=== PATIENT | male | born 1975 | race American Indian/Alaskan Native ===

== ENCOUNTER 2016-11-07 11:00 | Outpatient (CLI) | payer MEDICAID ==
--- NOTE | 2016-11-07 13:34 | XRay Report ---
CHEST 2 VIEWS INDICATION: Sarcoidosis. COMPARISON: 02/27/2016 FINDINGS: PA and lateral chest radiographs again demonstrate normal cardiomediastinal silhouette. No pleural effusions or CHF. Overall less prominent lung markings, though mild bibasilar infiltrates again seen. Stable bones, including mild thoracic dextroscoliosis. CONCLUSION: Chronic interstitial infiltrates again noted, overall slight radiographically improved since February 2016, as described. Please correlate. Thank you for the opportunity to participate in this patient's care.
--- NOTE | 2016-11-07 15:01 | Cat Scan Report ---
CT CHEST WITHOUT CONTRAST INDICATION: Sarcoidosis. COMPARISON: 02/27/2016. FINDINGS: Noncontrast chest CT demonstrates stable top normal heart size. Dense left coronary calcifications again noted. No effusions. Patent central airway. Assessment of the great vessels and for assessing lymphadenopathy limited due to lack of IV contrast. Hilar/mediastinal lymphadenopathy noted previously may again be present, though possibly overall smaller as an index left suprahilar lymphoid soft tissue measurement now approximately 1.8 x 0.9 cm, axial image 57, series 2, previously 2.4 x 1.7 cm. Few small right lower neck muscular calcifications again partially imaged. Normal thyroid. Mild emphysematous changes/peripheral bullae towards the lung apices again noted. Breathing/motion artifact degrades evaluation of the lung bases. However, mild chronic infiltrates in the mid to lower lung zones again noted, though overall appear improved. Nonspecific distal esophageal wall thickening, not excluded for gastroesophageal reflux and/or hiatal hernia, amongst others. Nonobstructing bilateral renal calculi inferiorly again incompletely imaged, measuring approximately 1.3 cm on the right and 0.9 cm on the left, axial image 138, series 2. Mild degenerative spurring at few thoracic and lower cervical levels. Upper lumbar levorotoscoliosis may also be incompletely imaged. CONCLUSION: 1. Exam limited due to lack of IV contrast in this patient with known sarcoid lung and lymph node involvement, though overall appears mildly improved since February 2016. 2. Few other incidental findings, including bilateral nephrolithiasis and distal esophageal thickening, amongst others, as above. Thank you for the opportunity to participate in this patient's care.
== END 2016-11-07 11:01 | disposition home or self-care (01) ==
LOC: CT 11:00
PROVIDERS: ATTEND Internal Medicine
DX: D86.9 Sarcoidosis, unspecified (principal); R91.8 Other nonspecific abnormal finding of lung field; I25.10 Atherosclerotic heart disease of native coronary artery without angina pectoris; M61.9 Calcification and ossification of muscle, unspecified; N20.0 Calculus of kidney; M41.86 Other forms of scoliosis, lumbar region
CPT/HCPCS: 71020; 71250

== ENCOUNTER 2017-02-28 09:13 | Emergency (ER) | payer MEDICAID ==
[2017-02-28 10:48] VITALS: BP 120/87
--- NOTE | 2017-02-28 15:31 | XRay Report ---
PA and lateral chest: SOB. Routine views are compared to prior exams in October 2016 as well as February 2016. There is a generally coarse interstitial pattern. Focal linear areas of increased density are present at the left base. These findings are unchanged compared to the October 2016 exam. There has been improvement in the overall pattern compared to the 2015 exam. The heart is normal in size. There is no vascular congestion. Impression: Stable abnormal interstitial pulmonary pattern. These findings are consistent with this patient's history of sarcoidosis.
== END 2017-02-28 14:50 | disposition home or self-care (01) ==
LOC: ED 09:13
DX: J03.90 Acute tonsillitis, unspecified (principal); K12.2 Cellulitis and abscess of mouth; F17.200 Nicotine dependence, unspecified, uncomplicated
CPT/HCPCS: 71020; 96372; 99283; J2930

== ENCOUNTER 2017-08-21 12:46 | Day surgery (SDC) | payer MEDICAID, OTHER ==
[2017-08-21] MEDS ORDERED: NACL BACTERIOSTATIC INFILTRATI ONE (13:21)
[2017-08-21] MEDS ORDERED: SUBLIMAZE IV ONE (13:24)
--- NOTE | 2017-08-21 13:24 | Anesthesia Consultation ---
Anesthesia Consult and Med Hx Date of service: 08/21/17 - Airway Anesthetic Teeth Evaluation: Chipped ROM Head & Neck: Adequate Mental/Hyoid Distance: Adequate Mallampati Class: Class II Intubation Access Assessment: Probably Good - Pulmonary Exam CTA: Yes - Pre-Operative Health Status ASA Pre-Surgery Classification: ASA2 Proposed Anesthetic Plan: General - Pre-Anesthesia Comment Pre-Anesthesia Comments: has hx of sarcoidosis - Pulmonary Hx Smoking: Yes (HX SMOKING-IN [facility] NOW) Hx Sleep Apnea: No (KANE PRE SCREEN LOW RISK.) - Cardiovascular System Hx Hypertension: No - Central Nervous System Hx Back Pain: Yes (FROM STONE) - Endocrine Hx Renal Disease: Yes (kidney stones) - Other Systems Hx Cancer: No
--- NOTE | 2017-08-21 13:24 | Anesthesia Day of Surgery ---
Anesthesia Day of Surgery - Day of Surgery Patient Examined: Yes Patient H&P Reviewed: Yes Patient is NPO: Yes
[2017-08-21] MEDS ORDERED: VERSED ONE (13:31)
[2017-08-21] MEDS ORDERED: NACL 0.9% 1000 ML 1,000 ML IV SCH (14:00)
[2017-08-21] MEDS ORDERED: VERSED IV NR (14:00)
[2017-08-21] MEDS ORDERED: SUBLIMAZE IV NR (14:00)
[2017-08-21] MEDS ORDERED: LEVAQUIN 500MG/100ML 500 MG/100 ML BAG IV NR (14:00)
[2017-08-21] MEDS ORDERED: PEPCID IV NR (14:00)
[2017-08-21] MEDS ORDERED: DIPRIVAN 10 MG/ML IV ONE ×2 (14:25→14:35)
[2017-08-21] MEDS ORDERED: XYLOCAINE MPF 2% ONE (14:26)
[2017-08-21] MEDS ORDERED: SUBLIMAZE ONE (14:53)
--- NOTE | 2017-08-21 15:07 | Post Operative Note ---
Date of procedure: 08/21/17 Pre-op diagnosis: renal stones Post-op diagnosis: same Findings: as above Procedure: r eswl Anesthesia: ZOILA Surgeon: WAYNE PARKS Estimated blood loss: none Pathology: none Condition: stable Disposition: PACU
--- NOTE | 2017-08-21 15:08 | Discharge Summary ---
Short Stay Discharge Plan Activity: other (no straining ) Weight Bearing Status: Full Weight Bearing Diet: regular, low salt Special Instructions: other (inc fluids ) Follow up with: RADHA FAIR MD [Primary Care Provider] - 7 Days ARNOLDO RAMOS MD [Staff Physician] - 7 Days
[2017-08-21] MEDS ORDERED: ePHEDrine SULFATE ONE (15:09)
--- NOTE | 2017-08-21 15:26 | Post Anesthesia Evaluation ---
- Post Anesthesia Evaluation Patient Participated: Yes Airway Patent: Yes Stable Respiratory Function: Yes Nausea/Vomiting: No Temp > 96.8F: Yes Pain Manageable: Yes Adequeate Hydration: Yes Anesthesia Complications: No
[2017-08-21 17:30] VITALS: BP 129/89
--- NOTE | 2017-08-21 18:30 | Operative Report ---
PREOPERATIVE DIAGNOSIS: Bilateral renal stones. POSTOPERATIVE DIAGNOSES: Bilateral renal stones. Large stones, right kidney. PROCEDURE: Right in situ lithotripsy. SURGEON: Laurent Vazquez MD ANESTHESIA: General. FINDINGS: This is a gentleman with large stones in his right kidney. All risks and he has stones bilaterally and history of stones. All risks and implications discussed. DESCRIPTION OF PROCEDURE: The patient was brought to lithotripsy unit and placed on the table. Following induction of general anesthesia, stone was well localized, both the AP and oblique image. Shocks were begun at 1 kV, renal pause was carried out at 200 shocks and the shocks were continued to 5 kV. Total 2500 shocks were given. There was some spreading of the stone. The stone was quite dense on x-ray. The patient tolerated the procedure well. No significant complications. This will likely be multiple staged procedures to get rid of these large stones. He may require ureteroscopy, stenting or percutaneous nephrostomy or repeat lithotripsy. He was brought to recovery in stable condition. JOB# [id number] MAITE/GEORGI
== END 2017-08-21 12:47 | disposition home or self-care (01) ==
LOC: OR 12:46
PROVIDERS: ATTEND Urology
DX: N20.0 Calculus of kidney (principal); Z79.899 Other long term (current) drug therapy; Z88.1 Allergy status to other antibiotic agents; Z88.8 Allergy status to other drugs, medicaments and biological substances; Z87.891 Personal history of nicotine dependence; Z98.890 Other specified postprocedural states
CPT/HCPCS: 50590; J1956; J2704; J3010; J7030; J2250